=== PATIENT | female | born 1945 | race Caucasian/White ===

== ENCOUNTER 2020-11-01 10:51 | Outpatient (CLI) | payer MEDICARE | END 2020-11-01 10:52 | disposition home or self-care (01) | LOC: BICMAMMO 10:51 | PROVIDERS: ATTEND Student in an Organized Health Care Education/Training Program | DX: Z13.820 Encounter for screening for osteoporosis (principal); Z78.0 Asymptomatic menopausal state; Z12.31 Encounter for screening mammogram for malignant neoplasm of breast | CPT/HCPCS: 77063; 77067; 77080 ==

== ENCOUNTER 2022-06-16 11:43 | Outpatient (CLI) | payer MEDICARE ==
[2022-06-16 15:00] LABS: #Eosinphils 0.1 thou/uL (0.0-0.7); #Lymphocytes 1.7 thou/uL (1.20-3.40); #Monocytes 0.7 thou/uL (0.11-0.59); #Neutrophils 7.5 thou/uL (1.40-6.50); %Basophils 0.3 % (0.0-1.0); %Monocytes 7.3 % (0.0-10.0); %Neutrophils 74.4 % (42.0-75.0); Mean Corpuscular HGB CONC 32.2 g/dL (32.0-36.0); Mean Corpuscular Hemoglobin 28.6 pg (27.0-31.0); Mean Corpuscular Volume 88.9 fL (78.0-98.0); Mean Platelet Volume 7.7 fL (7.4-10.4); Platelet Count 250 thou/uL (130-400); RBC Distribution Width 13.4 % (11.5-14.5); Red Blood Cell (RBC) Count 4.91 mill/uL (4.20-5.40)
[2022-06-16 15:52] LABS: Bacteria/HPF 4+ HPF (None Seen); Bilirubin Negative (Negative); Blood, Urine Negative (Negative); Clarity Clear (Clear); Glucose, Urine (Dipstick) Normal (Negative); Ketone, Urine Negative (Negative); Leukocyte 25 Leu/uL (Negative); Nitrite Negative (Negative); Protein, Urine (Dipstick) Negative (Neg-Trace); RBC/HPF 0-3 HPF (0-3); Squamous Epithelial 0-3 HPF (0-3); Urobilinogen Normal mg/dL (Less than 2)
[2022-06-16 21:18] LABS: ALT (SGPT) 8 U/L (8-55); AST (SGOT) 11 U/L (5-34); Albumin 4.6 g/dL (3.4-4.8); Alkaline Phosphatase 96 U/L (40-110); Anion Gap 13 mmol/L (10-20); BUN (Urea Nitrogen) 20 mg/dL (9.8-20.1); Bilirubin, Total 0.6 mg/dL (0.2-1.2); CRP (Inflammatory) 1.04 mg/dL (= or < 0.5); Calc. Creatinine Clearance 0 mL/min (70-130); Carbon Dioxide 28 mmol/L (23-31); Chloride 102 mmol/L (98-107); Estimated GFR 56; Globulin 2.6 g/dL (2.4-3.5); Glucose 113 mg/dL (83-110); Potassium 5.4 mmol/L (3.5-5.1); Protein, Total 7.2 g/dL (5.8-8.1); Sodium 138 mmol/L (136-145)
[2022-06-17 03:43] LABS: Thyroid Stimulating Hormone 0.4528 uIU/mL (0.35-4.94); Vitamin D, 25 Hydroxy 52.3 ng/ml (> 30.0)
== END 2022-06-16 11:44 | disposition home or self-care (01) ==
LOC: SCSRAD 11:43
PROVIDERS: ATTEND Student in an Organized Health Care Education/Training Program
DX: M25.551 Pain in right hip (principal); M25.561 Pain in right knee; E55.9 Vitamin D deficiency, unspecified; R61 Generalized hyperhidrosis
CPT/HCPCS: 36415; 80053; 81001; 82306; 84443; 85025; 85652; 86140

== ENCOUNTER 2023-02-20 10:43 | Outpatient (CLI) | payer MEDICARE | END 2023-02-20 10:44 | disposition home or self-care (01) | LOC: BICMAMMO 10:43 | PROVIDERS: ATTEND Student in an Organized Health Care Education/Training Program | DX: Z12.31 Encounter for screening mammogram for malignant neoplasm of breast (principal) | CPT/HCPCS: 77063; 77067 ==

== ENCOUNTER 2025-06-20 07:49 | Outpatient (CLI) | payer MEDICARE | END 2025-06-20 07:50 | disposition home or self-care (01) | LOC: BICMAMMO 07:49 | PROVIDERS: ATTEND Student in an Organized Health Care Education/Training Program | DX: Z12.31 Encounter for screening mammogram for malignant neoplasm of breast (principal) | CPT/HCPCS: 77063; 77067 ==

== ENCOUNTER 2025-07-21 05:28 | Observation (INO) | payer MEDICARE ==
[2025-07-21] MEDS ORDERED: Adenosine 6 mg (2 mL) VIAL ONE (05:40)
[2025-07-21] MEDS ORDERED: Metoprolol Tartrate 5 MG (5 mL) VIAL ONE (06:14)
[2025-07-21 06:18] LABS: #Basophils 0.06 10x3/uL (0.0-0.2); #Eosinophils 0.19 10x3/uL (0.0-0.7); #Monocytes 0.72 10x3/uL (0.11-0.59); #Neutrophils 6.80 10x3/uL (1.40-6.50); %Basophils 0.6 % (0.0-1.0); %Eosinophils 2.0 % (0.0-10.0); %Lymphocytes 19.3 % (21.0-51.0); %Monocytes 7.5 % (0.0-10.0); %Neutrophils 70.3 % (42.0-75.0); Hematocrit 41.1 % (36.0-47.0); Hemoglobin 13.2 g/dL (12.0-16.0); Mean Corpuscular Hemoglobin 27.0 pg (27.0-31.0); Mean Corpuscular Volume 84.0 fL (78.0-98.0); Platelet Count 235 10x3/uL (130-400); Red Blood Cell (RBC) Count 4.89 mill/uL (4.20-5.40); White Blood Cell (WBC) Count 9.66 10x3/uL (4.8-10.8)
[2025-07-21 06:33] LABS: ALT (SGPT) Less than 7 U/L (Less than 34); AST (SGOT) 15 U/L (11-34); Albumin 3.8 g/dL (3.1-4.5); Alkaline Phosphatase 84 U/L (40-110); Anion Gap 14 mmol/L (10-20); BUN (Urea Nitrogen) 15 mg/dL (9.8-20.1); Bilirubin, Total 0.4 mg/dL (0.3-1.2); Calc. Creatinine Clearance 0 mL/min (70-130); Calcium 9.0 mg/dL (7.8-10.44); Carbon Dioxide 22 mmol/L (23-31); Chloride 108 mmol/L (98-107); Globulin 3.0 g/dL (2.4-3.5); Glucose 139 mg/dL (83-110); Potassium 3.7 mmol/L (3.5-5.1); Sodium 140 mmol/L (136-145)
[2025-07-21] MEDS ORDERED: Aspirin Chewable 81 MG TAB ONE (07:16)
[2025-07-21] MEDS ORDERED: Acetaminophen 325 MG TAB PO PRN (08:53)
[2025-07-21] MEDS: Enoxaparin 40 MG (0.4 mL) SYRINGE SC SCH ×2 (11:49→20:31)
[2025-07-21] MEDS: Famotidine 20 MG TAB PO SCH (11:49)
[2025-07-21 11:57] VITALS: BMI 43.5
[2025-07-21 12:44] LABS: Free T4 (Free Thyroxine) 1.29 ng/dL (0.70-1.48); Thyroid Stimulating Hormone 0.586 uIU/mL (0.35-4.94)
[2025-07-21] MEDS ORDERED: Iopamidol-370 76% 500 ML MDV (1 ML CHARGE) ONE (13:39)
[2025-07-21] MEDS: Metoprolol Succinate XL 25 MG ER.TAB PO SCH (14:50)
[2025-07-22 06:21] LABS: #Basophils 0.04 10x3/uL (0.0-0.2); #Eosinophils 0.15 10x3/uL (0.0-0.7); #Monocytes 0.54 10x3/uL (0.11-0.59); #Neutrophils 5.67 10x3/uL (1.40-6.50); %Basophils 0.5 % (0.0-1.0); %Eosinophils 1.9 % (0.0-10.0); %Lymphocytes 18.5 % (21.0-51.0); %Monocytes 6.9 % (0.0-10.0); %Neutrophils 71.9 % (42.0-75.0); Hematocrit 38.9 % (36.0-47.0); Hemoglobin 12.5 g/dL (12.0-16.0); Mean Corpuscular Hemoglobin 27.8 pg (27.0-31.0); Mean Corpuscular Volume 86.4 fL (78.0-98.0); Platelet Count 204 10x3/uL (130-400); Red Blood Cell (RBC) Count 4.50 mill/uL (4.20-5.40); White Blood Cell (WBC) Count 7.88 10x3/uL (4.8-10.8)
[2025-07-22 06:34] LABS: Anion Gap 14 mmol/L (10-20); BUN (Urea Nitrogen) 17 mg/dL (9.8-20.1); Calc. Creatinine Clearance 99 mL/min (70-130); Calcium 9.1 mg/dL (7.8-10.44); Carbon Dioxide 25 mmol/L (23-31); Chloride 108 mmol/L (98-107); Glucose 100 mg/dL (83-110); Potassium 4.1 mmol/L (3.5-5.1); Sodium 143 mmol/L (136-145)
[2025-07-22] MEDS: FLU (Fluad Triv) 25-26 (65UP)PF 45 MCG/0.5 ML Syringe IM ONE (08:41)
[2025-07-22] MEDS: Metoprolol Succinate XL 25 MG ER.TAB PO SCH (08:46)
[2025-07-22 11:56] VITALS: TEMP 98.1
[2025-07-22 15:56] VITALS: BP 134/85
== END 2025-07-22 16:22 | disposition home or self-care (01) ==
LOC: ERS 05:28 → OBS 08:57
PROVIDERS: ADMIT Hospitalist; ATTEND Family Medicine
DX: I47.10 Supraventricular tachycardia, unspecified (principal); J98.19 Other pulmonary collapse; Z88.6 Allergy status to analgesic agent; Z88.5 Allergy status to narcotic agent
CPT/HCPCS: 71045; 71275; 80048; 83880; 84439; 84484; 85025; 85379; 93005; 96374; 99285; J1650 ×2; 36415; 80053; 84443; 96372; G0378; J0153; Q9967

== ENCOUNTER 2025-08-05 14:39 | Outpatient (CLI) | payer MEDICARE | END 2025-08-05 14:40 | disposition home or self-care (01) | LOC: ULT 14:39 | PROVIDERS: ATTEND Student in an Organized Health Care Education/Training Program | DX: E01.0 Iodine-deficiency related diffuse (endemic) goiter (principal) | CPT/HCPCS: 76536 ==